=== PATIENT | female | born 1935 | race African-American/Black ===

== ENCOUNTER 2017-04-02 05:21 | Emergency (ER) | payer MEDICARE, OTHER ==
[~2017-04-02] VITALS: Ht 157.5 cm; Wt 50.0 kg
[2017-04-02] MEDS ORDERED: KETOROLAC 60MG/2ML VIAL IM ONE (08:45)
[2017-04-02 11:28] VITALS: BP 127/74
== END 2017-04-02 12:20 | disposition home or self-care (01) ==
LOC: ER 05:28
DX: M54.30 Sciatica, unspecified side (principal); I10 Essential (primary) hypertension; Z87.891 Personal history of nicotine dependence
CPT/HCPCS: 72100; 73502; 96372; 99284; J1885